=== PATIENT | female | born 1995 | race African-American/Black ===

== ENCOUNTER 2017-03-06 12:07 | Emergency (ER) | payer OTHER ==
[~2017-03-06] VITALS: Ht 170.2 cm; Wt 59.1 kg
[2017-03-06] MEDS ORDERED: KETOROLAC TROMETHAMINE 60 MG/2 ML VIAL IM ONE (13:00)
[2017-03-06 13:42] VITALS: BP 130/78
== END 2017-03-06 13:49 | disposition home or self-care (01) ==
LOC: EMS 12:10
DX: G43.821 Menstrual migraine, not intractable, with status migrainosus (principal); R09.89 Other specified symptoms and signs involving the circulatory and respiratory systems
CPT/HCPCS: 96372; 99283; J1885